=== PATIENT | male | born 1955 | race Caucasian/White ===

== ENCOUNTER 2023-05-27 05:55 | Day surgery (SDC) | payer MEDICARE, SELFPAY ==
[2023-05-27 06:30] VITALS: BP 146/79; PULSE 58; RESP 16; TEMP 36.6; O2SAT 96; BMI 40.9
[2023-05-27] MEDS: Lactated Ringers 1,000 ML 15 ML IV (06:33)
--- NOTE | 2023-05-27 07:11 | PCM.HP.BLA ---
History and Physical Date of Admission: 05/27/23 History and physical exam unchanged from 05/10/23 medical clearance. Assessment & Plan Assessment/Plan (1) Painful scar: (2) Scar adherent: PLAN: Plan Pt for excision scar with skin transposition. The procedure was thoroughly reviewed with him and his . No guarantees of final outcome was made.
[2023-05-27] MEDS: Povidone Iodine 30 ML Opthalmic Sol 1 DRP (07:50)
[2023-05-27] MEDS: Lidocaine 1% /Epi 1:100 (20ml) 20 ML Vial (07:52)
--- NOTE | 2023-05-27 09:08 | EX.PCM.DISCH ---
Discharge Instructions Diet Discharge Diet: No restrictions Activity Additional Activity Instructions:: Keep Steri-Strips dry; Keep your back elevated (recliner position) for the next 4-5 nights Leave the Steri-Strips and dressings in place Take the oral antibiotic (Keflex) twice a day until finished Take Tylenol or ibuprofen for pain??take the prescribed Percocet only as needed for severe pain Follow Up Care Please Follow Up With: Carmen Ruiz MD When: In 1 week??call for an appointment Test Results: Test results from this visit will be discussed in further detail at your follow-up appointment, if applicable. Discharge Plan Admission Attending Provider: Carmen Ruiz Primary Care Provider: LINWOOD HERNANDEZ Discharge Orders/Prescriptions Prescriptions: No Action finasteride 5 mg tablet 5 mg PO DAILY meloxicam 15 mg tablet 15 mg PO .prn metoprolol succinate 50 mg tablet extended release 24 hr 50 mg PO BID zolpidem [Ambien] 5 mg tablet 5 mg PO QHS PRN (Reason: insomnia) chlorthalidone 25 mg tablet 25 mg PO DAILY Eliquis 2.5 mg tablet 2.5 mg PO BID Patient Comments: PT PLANS ON CALLING OFFICE TO DETERMINE WHEN LAST DOSE WILL BE Other Ambulatory Orders: Basic Metabolic Profile (BMP) (Routine) Timeframe: 20230527 Facility: [facility] - Location: Laboratory Ordered By: Dr. Ari Bird CBC-Complete Blood Cnt No Diff (Routine) Timeframe: [id number] Facility: [facility] - Location: Laboratory Ordered By: Dr. Ari Bird Referrals / Follow Up: [facility],Out of [Non-Staff] - Disposition Disposition (needs filled in before D/C Order can be placed): Home, Self Care
[2023-05-27 09:10] VITALS: BP 143/93; BP 146/79; PULSE 62; RESP 16; TEMP 36.6; O2SAT 92
[2023-05-27 09:15] VITALS: BP 142/82; BP 146/79; PULSE 63; RESP 16; O2SAT 96
--- NOTE | 2023-05-27 09:15 | EX.PCM.DISCH ---
Discharge Instructions Diet Discharge Diet: No restrictions Activity Additional Activity Instructions:: Keep Steri-Strips dry; Keep your back elevated (recliner position) for the next 4-5 nights Leave the Steri-Strips and dressings in place Take the oral antibiotic (Keflex) twice a day until finished Take Tylenol or ibuprofen for pain??take the prescribed Percocet only as needed for severe pain Follow Up Care Please Follow Up With: Carmen Ruiz MD Test Results: Test results from this visit will be discussed in further detail at your follow-up appointment, if applicable. Discharge Plan Admission Attending Provider: Carmen Ruiz Primary Care Provider: LINWOOD HERNANDEZ Discharge Orders/Prescriptions Prescriptions: No Action finasteride 5 mg tablet 5 mg PO DAILY meloxicam 15 mg tablet 15 mg PO .prn metoprolol succinate 50 mg tablet extended release 24 hr 50 mg PO BID zolpidem [Ambien] 5 mg tablet 5 mg PO QHS PRN (Reason: insomnia) chlorthalidone 25 mg tablet 25 mg PO DAILY Eliquis 2.5 mg tablet 2.5 mg PO BID Patient Comments: PT PLANS ON CALLING OFFICE TO DETERMINE WHEN LAST DOSE WILL BE Other Ambulatory Orders: Basic Metabolic Profile (BMP) (Routine) Timeframe: 20230527 Facility: [facility] - Location: Laboratory Ordered By: Dr. Ari Bird CBC-Complete Blood Cnt No Diff (Routine) Timeframe: [id number] Facility: [facility] - Location: Laboratory Ordered By: Dr. Ari Bird Referrals / Follow Up: [facility] Doctor,Out of [Non-Staff] - Disposition Disposition (needs filled in before D/C Order can be placed): Home, Self Care
--- NOTE | 2023-05-27 09:16 | OP.PCM_ITS ---
Problems Associated Problem List Diagnoses (1) Painful scar: (2) Scar adherent: Report of Operation Date of Procedure: 05/27/23 Pre-Operative Diagnosis: Adherent painful scar forehead Post-Operative Diagnosis: Same Surgery/Procedure Performed:: Excision adherent scar; layered closure and Z- plasty rearrangement of skin (10 centimeter squared) Surgeon: Carmen Ruiz Type of Anesthesia: General Description of Procedure: The patient was brought to the operating room and placed under general anesthesia in the supine position. Care is taken to apply a warming blanket, sequential compression stockings, and to pad all pressure points. The face is prepped and draped in the usual sterile fashion. We initially began with excising the adherent portion of the scar. Following this, the muscle layer of the soft tissue was identified and isolated. This is then closed with multiple [id number] suture to approximate the underlying muscle. Following this, the skin edges are demarcated in a Z-plasty rearrangement. The flaps are incised and elevated in the deep subcutaneous plane. 2 Z-plasties are designed along the length of the scar. Hemostasis is assured. They are rearranged and tacked in place with silk suture. Following this, the skin edges are closed with a running plain gut suture. Dermabond is applied along the length of the incision as well as quarter inch Steri-Strips. He tolerated the procedure well and was taken to the recovery area in an awakening in stable condition. Needle and sponge counts are correct. Complications None Admit VTE Documentation VTE Mechan Device Prophylaxis: SCD's
--- NOTE | 2023-05-27 09:29 | DCINST_ITS ---
Discharge Instructions Diet Discharge Diet: No restrictions Activity Additional Activity Instructions:: Keep Steri-Strips dry; Keep your back elevated (recliner position) for the next 4-5 nights Leave the Steri-Strips and dressings in place Take the oral antibiotic (Keflex) twice a day until finished Take Tylenol or ibuprofen for pain??take the prescribed Percocet only as needed for severe pain Follow Up Care Please Follow Up With: Carmen Ruiz MD Test Results: Test results from this visit will be discussed in further detail at your follow- up appointment, if applicable. Discharge Plan Admission Attending Provider: Carmen Ruiz Primary Care Provider: LINWOOD HERNANDEZ Discharge Orders/Prescriptions Prescriptions: No Action finasteride 5 mg tablet 5 mg PO DAILY meloxicam 15 mg tablet 15 mg PO .prn metoprolol succinate 50 mg tablet extended release 24 hr 50 mg PO BID zolpidem [Ambien] 5 mg tablet 5 mg PO QHS PRN (Reason: insomnia) chlorthalidone 25 mg tablet 25 mg PO DAILY Eliquis 2.5 mg tablet 2.5 mg PO BID Patient Comments: PT PLANS ON CALLING OFFICE TO DETERMINE WHEN LAST DOSE WILL BE Other Ambulatory Orders: Basic Metabolic Profile (BMP) (Routine) Timeframe: 20230527 Facility: [facility] - Location: Laboratory Ordered By: Dr. Ari Bird CBC-Complete Blood Cnt No Diff (Routine) Timeframe: 20230527 Facility: [facility] - Location: Laboratory Ordered By: Dr. Ari Bird Referrals / Follow Up: [facility] Doctor,Out of [Non-Staff] - Disposition Disposition (needs filled in before D/C Order can be placed): Home, Self Care
[2023-05-27 09:31] VITALS: BP 138/83; BP 146/79; PULSE 64; RESP 16; O2SAT 97
[2023-05-27 09:37] VITALS: BP 146/79; BP 147/87; PULSE 61; RESP 16; TEMP 36.1; O2SAT 94
--- NOTE | 2023-05-27 09:51 | EX.PCM.DISCH ---
Discharge Instructions Diet Discharge Diet: No restrictions Activity Additional Activity Instructions:: Keep Steri-Strips dry; Keep your back elevated (recliner position) for the next 4-5 nights Leave the Steri-Strips and dressings in place Take the oral antibiotic (Keflex) twice a day until finished Take Tylenol or ibuprofen for pain??take the prescribed Percocet only as needed for severe pain Follow Up Care Please Follow Up With: Carmen Ruiz MD Test Results: Test results from this visit will be discussed in further detail at your follow-up appointment, if applicable. Discharge Plan Admission Attending Provider: Carmen Ruiz Primary Care Provider: LINWOOD HERNANDEZ Discharge Orders/Prescriptions Prescriptions: New oxycodone-acetaminophen [Percocet] 5-325 mg tablet 1 tab PO Q8H PRN (Reason: pain, severe) 3 Days Qty: 7 0RF cephalexin 500 mg capsule 500 mg PO BID 7 Days Qty: 14 0RF No Action finasteride 5 mg tablet 5 mg PO DAILY meloxicam 15 mg tablet 15 mg PO .prn metoprolol succinate 50 mg tablet extended release 24 hr 50 mg PO BID zolpidem [Ambien] 5 mg tablet 5 mg PO QHS PRN (Reason: insomnia) chlorthalidone 25 mg tablet 25 mg PO DAILY Eliquis 2.5 mg tablet 2.5 mg PO BID Patient Comments: PT PLANS ON CALLING OFFICE TO DETERMINE WHEN LAST DOSE WILL BE Other Ambulatory Orders: Basic Metabolic Profile (BMP) (Routine) Timeframe: [id number] Facility: [facility] - Location: Laboratory Ordered By: Dr. Ari Bird CBC-Complete Blood Cnt No Diff (Routine) Timeframe: [id number] Facility: [facility] - Location: Laboratory Ordered By: Dr. Ari Bird Referrals / Follow Up: [facility] Doctor,Out of [Non-Staff] - Disposition Disposition (needs filled in before D/C Order can be placed): Home, Self Care
[2023-05-27 10:05] VITALS: BP 134/84; BP 146/79; PULSE 60; RESP 18; O2SAT 94
[2023-05-27] MEDS: Oxycodone/Apap 5/325 Tablet PO (10:10)
== END 2023-05-27 10:35 | disposition home or self-care (01) ==
LOC: SDC 05:59 → AC 05:59
PROVIDERS: Referring Provider Plastic Surgery; Visit Provider Plastic Surgery
PROC: (CPT 14040; principal; 2023-05-27 07:20)
DX: L90.5 Scar conditions and fibrosis of skin (principal); I48.91 Unspecified atrial fibrillation; I10 Essential (primary) hypertension; Z79.01 Long term (current) use of anticoagulants; Z79.1 Long term (current) use of non-steroidal anti-inflammatories (NSAID); Z79.899 Other long term (current) drug therapy
CPT/HCPCS: 14040; 00300; J7120; J2405